=== PATIENT | female | born 1940 | race Caucasian/White ===

== ENCOUNTER → 2021-02-09 10:39 | Outpatient (BNVA) | payer BC, SELFPAY | PROVIDERS: PCP Internal Medicine; Referring Provider Internal Medicine; Visit Provider Surgery ==

== ENCOUNTER 2023-03-07 10:48 | Outpatient (AMB) | payer BC, SELFPAY ==
--- NOTE | 2023-03-07 11:02 | MHC.OFFVIS ---
Intake Vital Signs 03/07/23 11:07 Height 5 ft 2 in Weight 143 lb BMI 26.2 BP 140/68 H Blood Pressure Location Lt brachial Position Sitting Pulse 133 H Intake Visit Reasons: Annual Breast Exam Intake Note: Patient is seen in office for yearly breast exam. Patient c/o: denies any concerns at the time of visit Stripper Color Required: No Accompanied by: Self / Same As Patient Allergies Cipro Allergy (Unknown, Uncoded 03/07/23 11:07) Unknown Medication List - Last Reconciled 03/07/23 by Elliott Baeza MD blood sugar diagnostic (SLIC gamesTouch Ultra Test strips) As directed blood-glucose meter (OPS USAuch Ultra2 Meter) As directed diltiazem HCl 120 mg PO DAILY glipizide ER mg PO lancets (SLIC gamesTouch UltraSoft Lancets) As directed losartan 50 mg PO DAILY metformin 1,500 mg PO DAILY omeprazole 20 mg PO BID sucralfate 1 g PO TID HPI HPI Comments History of Present Illness Details 82-year-old female patient former patient of Drs. Tavarez, Marlin Lopes, Meme, and Dipti, returning today for a yearly breast examination. She underwent a left breast lumpectomy [place] [address] Tavarez. This apparently was a small cancer and only lumpectomy was performed. 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 Pathology revealed a 1.3 cm carcinoma in situ with high nuclear grade, ER positive with 1 benign sentinel node. She subsequently underwent radiation therapy. She was evaluated by Dr. Taylor, and tamoxifen was recommended. The patient however elected to not take the tamoxifen due to the possible side effects. The patient's last mammogram was 12/12/2022 which revealed no changes and no mammographic evidence of malignancy (BI-RADS 2). Routine annual mammography was recommended. Overall the patient feels well denies any new breast symptoms on either side. [facility] Medical History GERD (gastroesophageal reflux disease) Diabetes Hypertension Breast cancer, left Breast cancer, right Surgical History History of colonoscopy History of tonsillectomy History of appendectomy History of lumpectomy of left breast History of lumpectomy of right breast Family History Family/Other Family history of prostate cancer Review of Systems Const All systems reviewed & are unremarkable except as noted in HPI and below Card Denies chest pain, Denies rapid heart rate and Denies irregular heart rhythm Resp Denies cough, Denies hemoptysis and Denies pain with cough Denies nipple discharge Skin/Breast Denies breast swelling, Denies breast skin changes, Denies breast pain, Denies breast mass, Denies change in breast shape, Denies change in pigmentation and Denies nipple discharge Physical Exam Vital Signs: Last Vital Signs Pulse 133 H 03/07/23 11:07 BP 140/68 H 03/07/23 11:07 BMI result Body Mass Index 26.2 Const General: cooperative, no acute distress and well developed Nutritional Appearance: well nourished Orientation/consciousness: patient oriented x3 Limitations: no limitations Neck Neck: Yes full ROM and Yes no lymphadenopathy Chest Other: Left breast: No skin change, no nipple retraction, no nipple discharge, no palpable mass, no enlarged lymph nodes. Right breast: No skin change, no nipple retraction, no nipple discharge, no palpable mass, no enlarged lymph nodes Resp Effort & Inspection: normal respiratory effort, no audible wheezes and no cough GI Inspection: Yes normal to inspection Skin General skin exam: no rashes or lesions noted Neuro General: patient oriented x3 Extrem General: Yes no clubbing, cyanosis or edema Assessment & Plan Assessment & Plan (1) History of right breast cancer: Code(s): Z85.3 - Personal history of malignant neoplasm of breast Plan 82-year-old female patient seen for a yearly breast examination after bilateral breast cancer surgery. Examination today reveals no suspicious findings and no evidence of recurrence disease. She recently underwent a mammogram on 12/12/2022 and no suspicious findings were identified (BI-RADS 2). She should continue with routine annual mammography and follow-up in 1 year for clinical breast examination. She is welcome to call sooner for any concerns. Coding Level of Care Code Est Pt Level 3 (37294) Diagnoses History of right breast cancer Z85.3
[2023-03-07 11:07] VITALS: BP 140/68; PULSE 133; BMI 26.2
== END 2023-03-07 11:20 | disposition home or self-care (01) ==
PROVIDERS: PCP Internal Medicine; Visit Provider Surgery
DX: Z85.3 Personal history of malignant neoplasm of breast (principal)
CPT/HCPCS: 99213

== ENCOUNTER → 2023-03-07 10:48 | Outpatient (BNVA) | payer BC, SELFPAY | PROVIDERS: PCP Internal Medicine; Visit Provider Surgery ==

== ENCOUNTER 2024-03-12 10:44 | Outpatient (AMB) | payer BC, SELFPAY ==
--- NOTE | 2024-03-12 10:45 | A.OFFVIS_ITS ---
Vital Signs 03/12/24 10:52 Height 5 ft 2 in Weight 138 lb BMI 25.2 Intake Visit Reasons: Annual Breast Exam Intake Note: Patient is seen in office for yearly breast exam. Pt c/o: reports no breast complaints. 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 Tavarez, Marlin Lopes, Meme, and Dipti, returning today for a yearly breast examination. She underwent a left breast lumpectomy [place] [address] Tavarez. This apparently was a small cancer and only lumpectomy was performed. 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 Pathology revealed a 1.3 cm carcinoma in situ with high nuclear grade, ER positive with 1 benign sentinel node. She subsequently underwent radiation therapy. She was evaluated by Dr. Taylor, and tamoxifen was recommended. The patient however elected to not take the tamoxifen due to the possible side effects. The most recent mammogram dated 12/15/2023 revealed no mammographic evidence of malignancy (BI-RADS 2). Routine annual mammography was recommended. Overall the patient feels well denies any new breast symptoms on either side. [facility] Medical History GERD (gastroesophageal reflux disease) Diabetes Hypertension Breast cancer, left Breast cancer, right Surgical History History of colonoscopy History of tonsillectomy History of appendectomy History of lumpectomy of left breast History of lumpectomy of right breast Family History Family/Other Family history of prostate cancer Review of Systems Const All systems reviewed & are unremarkable except as noted in HPI and below Card Denies chest pain, Denies rapid heart rate and Denies irregular heart rhythm Resp Denies cough, Denies hemoptysis and Denies pain with cough Denies nipple discharge Skin/Breast Denies breast swelling, Denies breast skin changes, Denies breast pain, Denies breast mass, Denies change in breast shape, Denies change in pigmentation and Denies nipple discharge Physical Exam Vital Signs: BMI result Body Mass Index 25.2 Const General: cooperative, no acute distress and well developed Nutritional Appearance: well nourished Orientation/consciousness: patient oriented x3 Limitations: no limitations Neck Neck: Yes full ROM and Yes no lymphadenopathy Chest Other: Left breast: No skin change, no nipple retraction, no nipple discharge, no palpable mass, no enlarged lymph nodes. Right breast: Post therapy changes to right breast with breast thickening but no skin change, no nipple retraction, no nipple discharge, no palpable mass, no enlarged lymph nodes Resp Effort & Inspection: normal respiratory effort, no audible wheezes and no cough GI Inspection: Yes normal to inspection Skin General skin exam: no rashes or lesions noted Neuro General: patient oriented x3 Extrem General: Yes no clubbing, cyanosis or edema Assessment & Plan Assessment & Plan (1) History of right breast cancer: Code(s): Z85.3 - Personal history of malignant neoplasm of breast Category: Medical Plan 83-year-old female patient seen for a yearly breast examination after bilateral breast cancer surgery. Examination today reveals no suspicious findings and no evidence of recurrence disease. She recently underwent a mammogram on 12/15/2023 which revealed no mammographic evidence of malignancy (BI-RADS 2). She should continue with routine annual mammography and follow-up in 1 year for clinical breast examination. She is welcome to call sooner for any concerns. Coding Level of Care Code Est Pt Level 3 (54862) Diagnoses History of right breast cancer Z85.3
[2024-03-12 10:52] VITALS: BMI 25.2
== END 2024-03-12 11:04 | disposition home or self-care (01) ==
PROVIDERS: PCP Internal Medicine; Visit Provider Surgery
DX: Z85.3 Personal history of malignant neoplasm of breast (principal)
CPT/HCPCS: 99213

== ENCOUNTER → 2024-03-12 10:44 | Outpatient (BNVA) | payer BC, SELFPAY | PROVIDERS: PCP Internal Medicine; Visit Provider Surgery ==

== ENCOUNTER 2025-03-21 11:14 | Outpatient (AMB) | payer BC, SELFPAY ==
--- NOTE | 2025-03-21 11:13 | MHC.OFFVIS ---
Vital Signs 03/21/25 11:32 Height 5 ft 2 in Weight 131 lb 6 oz BMI 24.0 BP 196/81 H Blood Pressure Location Lt brachial Position Sitting Pulse 69 Intake Visit Reasons: Annual Breast Exam Intake Note: Patient is seen in office for yearly breast exam. 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 Tavarez, Marlin Lopes, Meme, and Dipti, returning today for a yearly breast examination. She underwent a left breast lumpectomy in [address] Tavarez. This apparently was a small cancer and only lumpectomy was performed. 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 Pathology revealed a 1.3 cm carcinoma in situ with high nuclear grade, ER positive with 1 benign sentinel node. She subsequently underwent radiation therapy. She was evaluated by Dr. Taylor, and tamoxifen was recommended. The patient however elected to not take the tamoxifen due to the possible side effects. The most recent mammogram dated 12/15/2024 revealed no mammographic evidence of malignancy (BI-RADS 2). Routine annual mammography was recommended. Overall the patient feels well denies any new breast symptoms on either side. [facility] Medical History GERD (gastroesophageal reflux disease) Diabetes Hypertension Breast cancer, left Breast cancer, right Surgical History History of colonoscopy History of tonsillectomy History of appendectomy History of lumpectomy of left breast History of lumpectomy of right breast Family History Family/Other Family history of prostate cancer Review of Systems Const All systems reviewed & are unremarkable except as noted in HPI and below Physical Exam Const General: cooperative, no acute distress and well developed Nutritional Appearance: well nourished Orientation/consciousness: patient oriented x3 Limitations: no limitations Neck Neck: Yes full ROM and Yes no lymphadenopathy Chest Other: Left breast: No skin change, no nipple retraction, no nipple discharge, no palpable mass, no enlarged lymph nodes. Right breast: Post therapy changes to right breast with breast thickening but no skin change, no nipple retraction, no nipple discharge, no palpable mass, no enlarged lymph nodes Chest/axillae images:  1. 2. Resp Effort & Inspection: normal respiratory effort, no audible wheezes and no cough GI Inspection: Yes normal to inspection Skin General skin exam: no rashes or lesions noted Neuro Other: Mobility Assessment: 1. 3 meter assessment time (seconds) 7 2. Gait observations: Normal balance and gait General: patient oriented x3 Extrem General: Yes no clubbing, cyanosis or edema Assessment & Plan Assessment & Plan (1) History of right breast cancer: Code(s): Z85.3 - Personal history of malignant neoplasm of breast Category: Medical Plan 84-year-old female patient seen for a yearly breast examination after bilateral breast cancer surgery. Examination today reveals no suspicious findings and no evidence of recurrence disease. She recently underwent a mammogram on 12/15/2024 which revealed no mammographic evidence of malignancy (BI-RADS 2). She should continue with routine annual mammography and follow-up in 1 year for clinical breast examination. She is welcome to call sooner for any concerns. Coding Level of Care Code Est Pt Level 3 (44437) Complex EM visit Add On G2211 Diagnoses History of right breast cancer Z85.3
[2025-03-21 11:32] VITALS: BP 196/81; PULSE 69; BMI 24.0
--- OUTSIDE RECORDS SUMMARY | 2025-03-21 13:49 | XMS_ITS | Clinical Summary ---
Author Organization [facility] Address [address] [place] [address] Care Team Providers Care Finance Executive Name Role Phone Unavailable Primary Care Provider Unavailabl e Social History Tobacco Use Types Packs/Day Years Used Date Smoking Tobacco: Never Assessed Comments Unknown Sex and Gender Information Value Date Recorded Sex Assigned at Not on file Legal Sex Female 11:32 AM EDT Gender Identity Not on file Sexual Orientation Not on file Plan of Treatment Health Maintenance Due Date Last Done Comments Advance Care Planning 1940 DTaP/Tdap/Td Vaccines (1 - Tdap) 1960 Pneumococcal Vaccines 50+ (1 of 1 - PCV) 08/27/1991 Zoster (Shingles) Vaccine (1 of 2) 08/27/1991 RSV Vaccine 50 years and old er and Patients (1 - 1-dose 75+ series) 2016 COVID-19 Vaccine ( - 2023-2 5 season) 2025 Hepatitis B Vaccines Aged Out No long er eligible based on patient's age to complete this topic
--- OUTSIDE RECORDS SUMMARY | 2025-03-21 13:49 | XMS_ITS | Clinical Summary ---
Author Organization [facility] Address [address] [place] [address] Care Team Providers Care Hedis Coordinator Name Role Phone Luis Tenorio NP Primary Care Provider [phone] Medical History Medical History Date Comments Diabetes mellitus, type II ( CMS/HCC V24, CMS/HCC V28) DX:Diabetes mellitus, type I I (HCC) HTN (hypertension) DX:HTN (hyper tension) Covid-19 DX:COVID-19 GERD (gastroesophageal reflux disease) DX:GERD (gastroesophageal reflux disease) Glaucoma DX:Glaucoma Adenomatous polyp of colon DX:Ad enomatous polyp of colon Ju's thyroiditis DX:Isa adrian's thyroiditis Left lumbar radiculopathy DX:Lef t lumbar radiculopathy Lumbar spinal stenosis DX:Lumbar spinal stenosis Meningioma (CMS/HCC V24, CMS/HCC V28) DX:Meningioma (HCC) Sciatica DX:Sciatica Venous insufficiency DX:Venous i nsufficiency Social History Tobacco Use Types Packs/Day Years Used Date Smoking Tobacco: Former Cigarettes Q uit: 06/02/2009 Smokeless Tobacco: Never Alcohol Use Standard Drinks/Week Comments Not Asked 0 (1 standard drink = 0.6 oz pur e alcohol) Comments Unknown Sex and Gender Information Value Date Recorded Sex Assigned at Not on file Legal Sex Female 1:25 AM EST Gender Identity Not on file Sexual Orientation Not on file Obstetrics History Last Filed Vital Signs Vital Sign Reading Time Taken Comments Blood Pressure 140/78 05/08/2023 2:41 PM EST Sit ting L Arm Pulse 73 05/08/2023 2:41 PM EST Temperature - - Respiratory Rate - - Oxygen Saturation - - Inhaled Oxygen Concentration - - Weight 64.9 kg (143 lb) 05/08/2023 2:41 PM EST Height 157.5 cm (5' 2 ) 05/08/2023 2:41 PM EST Body Mass Index 26.15 05/08/2023 2:41 PM EST Plan of Treatment Health Maintenance Due Date Last Done Comments DTaP,Tdap,and Td Vaccines (1 - Tdap) 1959 Pneumococcal Vaccine: 50+ Ye ars (1 of 1 - PCV) 08/27/1991 Zoster Vaccines (1 of 2) 08/27/1991 RSV Immunization Adult Patie nts (1 - 1-dose 75+ series) 2016 Cholesterol Screening (Lipid Panel) 05/05/2022 Falls Risk Assessment 05/05/2022 Osteoporosis Screening (Bone Density Screening) 05/05/2022 Social Influencers of Health Screening 05/05/2022 Depression Screening 06/02/2024 COVID-19 Vaccine (1 - 2023-2 5 season) 2025 Influenza Vaccine (#1) 2025 HIB Vaccines Aged Out No longer eligi ble based on patient's age to complete this topic HPV Vaccines Aged Out No longer eligi ble based on patient's age to complete this topic Hepatitis A Vaccines Aged Out No long er eligible based on patient's age to complete this topic Hepatitis B Vaccines Aged Out No long er eligible based on patient's age to complete this topic IPV Vaccines Aged Out No longer eligi ble based on patient's age to complete this topic MMR Vaccines Aged Out No longer eligi ble based on patient's age to complete this topic Meningococcal ACWY Vaccine Aged Out N o longer eligible based on patient's age to complete this topic Meningococcal B Vaccine Aged Out No l onger eligible based on patient's age to complete this topic RSV Immunization Patients Un nain 20 months Aged Out No longer eligible b ased on patient's age to complete this topic Varicella Vaccines Aged Out No longer eligible based on patient's age to complete this topic Care Teams Hedis Coordinator Relationship Specialty Start Date End Date Luis Tenorio NP [facility] [address] [facility] [place] [address] PCP - General 11/12/22
== END 2025-03-21 11:33 | disposition home or self-care (01) ==
PROVIDERS: PCP Nurse Practitioner; Visit Provider Surgery
DX: Z85.3 Personal history of malignant neoplasm of breast (principal)
CPT/HCPCS: 99213